=== PATIENT | male | born 1985 | race African-American/Black ===

== ENCOUNTER 2022-09-09 01:53 | Emergency (ER) | payer OTHER, SELFPAY ==
[2022-09-09 01:54] VITALS: BP 152/95; PULSE 72; RESP 18; TEMP 36.1; O2SAT 98; BMI 34.4
[2022-09-09 04:14] VITALS: BP 127/78; PULSE 78; RESP 14; TEMP 36.6; O2SAT 95
--- NOTE | 2022-09-09 07:15 | PC.NURSE ---
pt is alert and oriented, skin appropriate for ethnicity, pt reports since has a rash/hives all over his body itchy, hand swelling, respirations even and unlabored, ls clear, speaking in clear sentences. vs stable
--- NOTE | 2022-09-09 07:20 | ED_ITS ---
HPI - Allergic Reaction General Chief complaint: Allergic Reaction Stated complaint: allergic reaction Time Seen by Provider: 09/09/22 06:28 Source: patient Mode of arrival: ambulatory Limitations: no limitations History of Present Illness HPI narrative: 36-year-old male with no medical history presents to the ER for evaluation of itchy, red hives all over his entire body that started 4 days ago after starting construction in his home. He was seen at urgent care 3 days ago he was started on prednisone 60 mg, Pepcid and p.r.n. hydroxyzine for itching. He states he initially had improvement after taking the steroids however when he went back home into the environment where his house is under construction he developed recurrence and worsening symptoms. He states when he touched his eyes his eyes got swollen. He feels like his lower lip is swollen. He denies any shortness of breath or wheezing. Denies any history of similar episodes in the past. He states he has a red, itchy, raised rash all over his body, worse on the abdomen and extremities. MD complaint: allergic reaction and hives Onset (ago): day(s) (4) Exposure: other Related Data Previous Rx's Medication Instructions Recorded diphenhydramine HCl 25 mg capsule 50 mg PO TID allergic reaction #30 09/09/22 (Allergy Medication) caps prednisone 10 mg tablets in a dose See Taper PO DAILY #48 ea 09/09/22 pack Allergies Allergy/AdvReac Type Severity Reaction Status Date / Time No Known Allergies Allergy Unverified 12/10/19 17:37 [No Known Allergies*] Review of Systems Review of Systems: Yes all other systems are reviewed and are negative [facility] Social History Social History Alcohol intake: never Smoked in Last 30 Days: No Use of substances other than those prescribed or required for medical reasons: No Advance Directives: No Advance Directives Information Provided: No Physical Exam ED Vital Signs: Vital Signs - 24 hr 09/09/22 01:54 09/09/22 04:14 09/09/22 07:29 Temperature 97 F 97.9 F Pulse Rate 72 78 85 Respiratory Rate 18 14 20 Blood Pressure 152/95 H 127/78 133/87 Pulse Oximetry 98 95 99 Oxygen Delivery Method Room Air Room Air Room Air BMI result Body Mass Index 34.4 Appearance: Alert. Oriented X3. No acute distress. Head: normocephalic, atraumatic. Eyes: Mild periorbital edema, no erythema. Pupils equal, round and reactive to light. ENT: mild swelling of the lower lip. airway patent. Pharynx normal. No tonsillar swelling or exudate. voice is normal Neck: Normal inspection. Neck supple. No anterior swelling. CVS: Normal heart rate and rhythm. Pulses normal. Respiratory: No respiratory distress. Breath sounds normal. Abdomen: Soft and nontender. +BS x4 Skin: Skin warm and dry. There is a diffuse, erythematous, raised, pruritic rash on the entire torso and but all 4 extremities. No facial involvement. Extremities: No lower extremity edema. No joint swelling. Neuro/psych: Oriented X 3. No motor deficit. No sensory deficit. CN II-XII intact. Normal speech and cognition. Medications Administered Discontinued Medications Generic Name Dose Route Start Last Admin Trade Name Freq PRN Reason Stop Dose Admin Diphenhydramine HCl 50 mg 09/09/22 06:48 09/09/22 07:27 Diphenhydramine Hcl 50 Mg/Ml Vial IVPUSH 09/09/22 06:49 50 mg ONCE ONE Administration Famotidine 20 mg 09/09/22 06:48 09/09/22 07:27 Famotidine/Pf 20 Mg/2 Ml Vial IVPUSH 09/09/22 06:49 20 mg ONCE ONE Administration Methylprednisolone Sodium Succinate 125 mg 09/09/22 06:48 09/09/22 07:27 Methylprednisolone Sod Succ 125 Mg/2 Ml Vial IVPUSH 09/09/22 06:49 125 mg ONCE ONE Administration Medical Decision Making Medical Decision Making [facility] Narrative: 28-year-old otherwise healthy male presents to the ER for evaluation full body hives that started 4 days ago. He had initial improvement with steroids however rash worsened once he was exposed back to the areas in his home under construction. Concerned this is the factor causing him to have reaction. He reported some lower lip swelling and eye swelling. His eyes are puffy. He has diffuse urticaria on his trunk and extremities. An IV was established he was given IV Solu-Medrol, IV Benadryl and Pepcid. After about 45 minutes patient had significant improvement in his rash. Patient is feeling better. Will plan to continue steroids. Will taper. Will change from Zyrtec to Benadryl. Will have him follow-up with his primary care doctor for possible information coordinator referral. He was instructed to do his best to refrain from exposing himself to potential causative factors in his home. He states he will wear tyvek suit and a respirator when working in the area. Comfortable discharge home. Patient agrees with plan. All questions were answered. Differential Diagnosis Differential Diagnoses: The differential diagnosis associated with the presentation includes Urticaria, generalized allergic reaction, contact dermatitis, angioedema External Record Review External record reviewed: Outpatient record Prescription Management I considered prescription management with: Other (Steroids and Benadryl) Social Determinants Patient?s care significantly limited by Social Determinants of Health including: Other Social Determinant of Health Precipitating factor causing his reaction is located in his home. He is going to stay in his mother's house until construction is complete Critical Care Time Critical Care Time Critical Care Time: No Discharge Plan Discharge Clinical Impression: Allergic reaction Patient Disposition: Home, Self-Care Instructions: General Allergic Reaction (ED) Additional Instructions: DD prescribe prednisone taper once you are complete with your higher dose prednisone from urgent care. Complete the entire course. Recommend stopping the Zyrtec. Start the prescribed Benadryl as directed. Do your best to avoid the areas in your home which may be precipitating her allergic reaction. Follow up with your doctor - you may benefit from an [employer] referral If you develop new or worsening symptoms call 911 or come back to the ER for further evaluation. Prescriptions: New diphenhydramine HCl [Allergy Medication] 25 mg capsule 50 mg PO TID Qty: 30 0RF prednisone 10 mg tablets,dose pack See Taper PO DAILY Qty: 48 0RF Taper: Prednisone 40 mg daily for 3 Days and 0 Hour 30 mg daily for 3 Days and 0 Hour 20 mg daily for 3 Days and 0 Hour 10 mg daily for 3 Days and 0 Hour Rx Instructions: discard remainder
[2022-09-09] MEDS: Famotidine/PF 20 MG/2 ML VIAL IVPUSH (07:27)
[2022-09-09] MEDS: methylPREDNISolone Sod Succ 125 MG/2 ML VIAL IVPUSH (07:27)
[2022-09-09] MEDS: diphenhydrAMINE HCL 50 MG/ML VIAL IVPUSH (07:27)
[2022-09-09 07:29] VITALS: BP 133/87; PULSE 85; RESP 20; O2SAT 99
== END 2022-09-09 08:36 | disposition home or self-care (01) ==
PROVIDERS: Emergency Provider Student in an Organized Health Care Education/Training Program
DX: L50.9 Urticaria, unspecified (principal); T78.40XA Allergy, unspecified, initial encounter; X58.XXXA Exposure to other specified factors, initial encounter
CPT/HCPCS: 96374; 96375; 99284; J1200; J2930

== ENCOUNTER 2022-12-02 15:10 | Emergency (ER) | payer OTHER, SELFPAY ==
--- NOTE | ~2022-12-02 | CT_ITS ---
EXAMINATION: CT HEAD WITHOUT CONTRAST CLINICAL INFORMATION: Facial asymmetry. COMPARISON: MRI brain dated 10/16/2011. TECHNIQUE: Contiguous axial imaging was performed from the skull base to vertex without intravenous administration of contrast. This CT examination was performed using dose optimization techniques as appropriate, variously including the following: *Automated exposure control *Adjustment of mA and/or kV according to patient size (this includes techniques or standardized protocols for targeted exams where dose is matched to indication/reason for exam; i.e. extremities or head) *Use of iterative reconstruction technique DLP: 748 mGy-cm FINDINGS: There is no acute intracranial hemorrhage or evidence of territorial infarction. No abnormal mass effect or midline shift is seen. [place] to white matter differentiation is well preserved. There is no abnormal attenuation within the brain parenchyma. The ventricles are normal in size. No extra-axial fluid collections are identified. The calvarium and scalp soft tissues are normal. The middle ear cavity and mastoid air cells are clear. There is mild left frontal sinusitis. There is moderate bilateral ethmoid and maxillary sinusitis. CT/CT head/brain wo IV con IMPRESSION: 1. No acute intracranial pathology. 2. There is paranasal sinusitis.
[2022-12-02 15:16] VITALS: BP 161/110; PULSE 90; RESP 18; TEMP 36.9; O2SAT 98; BMI 36.3
--- NOTE | 2022-12-02 15:17 | ED_ITS ---
HPI - General Adult General Chief complaint: Stroke Stated complaint: ?R side facial paralysis Time Seen by Provider: 12/02/22 18:08 Related Data Previous Rx's Medication Instructions Recorded diphenhydramine HCl 25 mg capsule 50 mg (2 x 25 mg) PO TID allergic 09/09/22 (Allergy Medication) reaction #30 caps prednisone 10 mg tablets in a dose See Taper PO DAILY #48 ea 09/09/22 pack prednisone 10 mg tablet 10 mg PO DIRECTED #38 tabs 12/02/22 Allergies Allergy/AdvReac Type Severity Reaction Status Date / Time No Known Allergies Allergy Verified 12/02/22 15:23 [No Known Allergies*] [facility] Social History Social History Alcohol intake: never Advance Directives: No Advance Directives Information Provided: No Physical Exam ED Vital Signs: Vital Signs - 24 hr 12/02/22 15:16 Temperature 98.5 F Pulse Rate 90 Respiratory Rate 18 Blood Pressure 161/110 H Pulse Oximetry 98 Oxygen Delivery Method Room Air BMI result Body Mass Index 36.3 Course Course Course Narrative: This is an RME: Additional HPI, ROS, PE not included below will be deferred to primary provider. Patient is a 37-year-old male who presents to the emergency department reporting at he noted partial paralysis to the right side of his face at 0900. 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 He states that he went to [id number] and he noticed that the right side of his mouth was weak. He had Almaraz's palsy previously which presented this way and then progressed to full right- sided paralysis. He does endorse an associated headache described as pressure and pain behind the right eye. He is noted to be hypertensive denies any history of hypertension. Complaining of ear pain, noted cerumen impaction without any evidence of vesicular lesions. at this time LKWT >6 hours ago, would not be tPA candidate. Physical examination: Mouth asymmetry only noted with pursed lips; NIH Stroke score 1, otherwise no deficits Plan: Labs, head CT Medical Decision Making Lab Data 12/02/22 16:01 12/02/22 16:01 Labs: Lab Results 12/02/22 Range/Units 16:01 WBC 8.6 (4.8-10.8) X10*3/uL RBC 5.05 (4.60-5.80) X10*6/uL Hgb 14.9 (14.0-18.0) g/dl Hct 42.8 (42.0-52.0) % MCV 84.8 (80.0-98.0) fL MCH 29.5 (27.0-33.0) pg MCHC 34.8 (31.0-36.0) g/dl RDW 13.1 (11.0-16.0) % Plt Count 312 (160-400) X10*3/uL MPV 8.8 L (9.4-12.4) fL Immature Gran % (Auto) 0.2 (0.0-0.4) % Neut % (Auto) 60.1 (45-73) % Lymph % (Auto) 28.7 (20-40) % [place] % (Auto) 8.1 (2-11) % Eos % (Auto) 2.4 (0-4) % Baso % (Auto) 0.5 (0-2) % Lymph # (Auto) 2.5 (1.2-4.9) X10*3/uL [place] # (Auto) 0.7 (0.1-1.2) X10*3/uL Eos # (Auto) 0.2 (0.0-0.4) X10*3/uL Baso # (Auto) 0.0 (0.0-0.2) X10*3/uL Abs Immat Gran (auto) 0.02 (0.00-0.03) X10*3/uL Absolute Neuts (auto) 5.2 (2.0-8.3) x10*3/uL Absolute Nucleated RBC 0.000 (0.0-0.012) X10*3/uL Nucleated RBC % (auto) 0.0 (0.0-0.2) /100WBC Sodium 142 (135-145) mmol/L Potassium 3.9 (3.3-5.1) mmol/L Chloride 107 (96-108) mmol/L Carbon Dioxide 25 (22-29) mmol/L Anion Gap 14 (12-20) BUN 16 (9-16) mg/dL Creatinine 0.99 (0.5-1.4) mg/dL Estim Creat Clear Calc 127.1 Estimated GFR > 60 Random Glucose 100 (60-115) mg/dL Calcium 9.5 (8.4-10.2) mg/dL Total Bilirubin 0.3 (0.0-1.0) mg/dL AST 19 (5-37) U/L ALT 26 (0-40) U/L Alkaline Phosphatase 78 (39-117) U/L Total Protein 7.7 (6.5-8.0) g/dL Albumin 4.6 (3.5-5.0) g/dL Lyme Screen IgG & IgM POSITIVE Lyme Progressive Test 1.52 H index Lyme IgG 18 kDa Band NON-REACTIVE Lyme IgG 23 kDa Band NON-REACTIVE Lyme IgG 28 kDa Band NON-REACTIVE Lyme IgG 30 kDa Band NON-REACTIVE Lyme IgG 45 kDa Band NON-REACTIVE Lyme IgG 58 kDa Band NON-REACTIVE Lyme IgG 66 kDa Band NON-REACTIVE Lyme IgG 93 kDa Band NON-REACTIVE Lyme IgG Ab (Immblot) NEGATIVE (NEGATIVE) Lyme IgM 23 kDa Band NON-REACTIVE Lyme IgM 39 kDa Band NON-REACTIVE Lyme IgM 41 kDa Band NON-REACTIVE Lyme IgM Interpretaton NEGATIVE (NEGATIVE) Discharge Plan Discharge Clinical Impression: Almaraz palsy Patient Disposition: Home, Self-Care Instructions: Almaraz Palsy (ED) Prescriptions: New prednisone 10 mg tablet 10 mg PO DIRECTED Qty: 38 0RF Rx Instructions: 6 tabs per days for 4 days 4 tabs per day for 2 days 2 tab per day for 2 days 1 tab per day for 2 days No Action diphenhydramine HCl [Allergy Medication] 25 mg capsule 50 mg PO TID Qty: 30 0RF prednisone 10 mg tablets,dose pack See Taper PO DAILY Qty: 48 0RF Taper: Prednisone 40 mg daily for 3 Days and 0 Hour 30 mg daily for 3 Days and 0 Hour 20 mg daily for 3 Days and 0 Hour 10 mg daily for 3 Days and 0 Hour Rx Instructions: discard remainder Referrals: Yaritza Grady MD [Physician] - 12/04/22 Physician,Joe Valle [Primary Care Provider] - 12/04/22 Interventions: ED Discharge Assessment Last Done: 12/02/22 19:57 Discharge Date/Time: 12/02/22 19:58
[2022-12-02 16:06] LABS: MANUAL DIFF FLAG NO
[2022-12-02 16:08] LABS: Basophils Percent Auto 0.5 % (0-2); Eosinophils Absolute Auto 0.2 X10*3/uL (0.0-0.4); Eosinophils Percent Auto 2.4 % (0-4); Hematocrit 42.8 % (42.0-52.0); Hemoglobin 14.9 g/dl (14.0-18.0); Imm Gran Abs Auto 0.02 X10*3/uL (0.00-0.03); Imm Gran Pct Auto 0.2 % (0.0-0.4); Lymphocytes Absolute Auto 2.5 X10*3/uL (1.2-4.9); Lymphocytes Percent Auto 28.7 % (20-40); Mean Corpuscular HGB Conc 34.8 g/dl (31.0-36.0); Mean Corpuscular Hemoglobin 29.5 pg (27.0-33.0); Mean Corpuscular Volume 84.8 fL (80.0-98.0); Mean Platelet Volume 8.8 fL (9.4-12.4); Monocytes Absolute Auto 0.7 X10*3/uL (0.1-1.2); Monocytes Percent Auto 8.1 % (2-11); Neutrophils Absolute Auto 5.2 x10*3/uL (2.0-8.3); Neutrophils Percent Auto 60.1 % (45-73); Platelet Count 312 X10*3/uL (160-400); Red Blood Count 5.05 X10*6/uL (4.60-5.80); Red Cell Distribution Width 13.1 % (11.0-16.0); White Blood Count 8.6 X10*3/uL (4.8-10.8)
[2022-12-02 16:30] LABS: Alanine Aminotransferase 26 U/L (0-40); Albumin Level 4.6 g/dL (3.5-5.0); Alkaline Phosphatase 78 U/L (39-117); Anion Gap 14 (12-20); Aspartate Amino Transferase 19 U/L (5-37); Bilirubin Total 0.3 mg/dL (0.0-1.0); Blood Urea Nitrogen 16 mg/dL (9-16); Calcium 9.5 mg/dL (8.4-10.2); Carbon Dioxide 25 mmol/L (22-29); Chloride 107 mmol/L (96-108); Creatinine Clr Calc Pharmacy 127.1; Estimated Glomerular Filt Rate > 60; Glucose Random 100 mg/dL (60-115); Potassium 3.9 mmol/L (3.3-5.1); Sodium 142 mmol/L (135-145); Total Protein 7.7 g/dL (6.5-8.0)
--- NOTE | 2022-12-02 18:43 | ED.NEUROSD ---
HPI - Neuro Symptoms/Deficit General Chief Complaint: Stroke Stated Complaint: ?R side facial paralysis Time Seen by Provider: 12/02/22 18:08 History of Present Illness HPI Narrative: Patient is a 37-year-old male with a history of Almaraz's palsy. Woke up give this morning noticed that his lip is weak. Patient's nose seems to be weaker on the right side. Also noted that he cannot close his eye as well on the right. No watery eyes. Patient has a history of Almaraz's palsy. He is from home. There is no travel history. [place] the city. Does not go outside. Has no history of diabetes, hypertension, high cholesterol, smoking, PA. No history of stroke. No weakness in the arms or legs. No difficulty with swallowing. No changes in speech. Related Data Previous Rx's Medication Instructions Recorded diphenhydramine HCl 25 mg capsule 50 mg (2 x 25 mg) PO TID allergic 09/09/22 (Allergy Medication) reaction #30 caps prednisone 10 mg tablets in a dose See Taper PO DAILY #48 ea 09/09/22 pack prednisone 10 mg tablet 10 mg PO DIRECTED #38 tabs 12/02/22 Allergies Allergy/AdvReac Type Severity Reaction Status Date / Time No Known Allergies Allergy Verified 12/02/22 15:23 [No Known Allergies*] Review of Systems Review of Systems: Positive facial weakness on right side PMFSH Past Medical History Attestation statement: The following information was validated with the patient. Social History Social History Alcohol intake: never Advance Directives: No Advance Directives Information Provided: No Physical Exam Vital Signs: Vital Signs: Last Vital Signs Temp 98.5 F 12/02/22 15:16 Pulse 90 12/02/22 15:16 Resp 18 12/02/22 15:16 BP 161/110 H 12/02/22 15:16 Pulse Ox 98 12/02/22 15:16 O2 Del Method Room Air 12/02/22 15:16 BMI result Body Mass Index 36.3 Appearance: Alert. Oriented X3. No acute distress. Eyes: Pupils equal, round and reactive to light. ENT: Pharynx normal. Neck: Normal inspection. Neck supple. No lymph nodes noted. No crepitus CVS: Normal heart rate and rhythm. Pulses normal. Normal S1 and S2 Respiratory: No respiratory distress. Breath sounds normal. No Wheezing. No rales Abdomen: Soft and nontender. No rigidity. No distention. good BS x4 Skin: Skin warm and dry. Normal skin color. Normal skin turgor. Extremities: No lower extremity edema. Neurovascular intact to all extremities. No Lacerations. No Rash Neuro: Oriented X 3. No motor deficit. No sensory deficit. Moving all extermities. No slurred speech. There is weakness in trying to keep the eyes closed on the right. There is a slight facial droop noted on the right side. There is slight increase in weakness noted in wrinkling his forehead. Medical Decision Making Medical Decision Making [facility] Narrative: Patient's symptoms consistent with Almaraz's palsy. There is right-sided facial weakness noted over the entire half of the face. There is no change in speech. There is no arms or leg weakness. Symptoms are consistent with Almaraz's palsy. Sugars normal no evidence for hypoglycemia. A Lyme was added. Patient to be discharged home on steroids. Currently in stable condition. CT scan of the head by my interpretation was grossly negative for any acute evidence of bleeding. I reviewed radiology's reading. Differential Diagnosis Differential Diagnoses: The differential diagnosis associated with the presentation includes Intracranial bleed, stroke, hypoglycemia, Lyme Admission/Observation Consideration of admission/observation: Escalation of care including admission/observation considered No need as patient has weakness over half the face consistent with bowels. Lab Data [facility] Lab Attestation statement: I reviewed the patient's lab results. 12/02/22 16:01 12/02/22 16:01 Labs: Lab Results 12/02/22 Range/Units 16:01 WBC 8.6 (4.8-10.8) X10*3/uL RBC 5.05 (4.60-5.80) X10*6/uL Hgb 14.9 (14.0-18.0) g/dl Hct 42.8 (42.0-52.0) % MCV 84.8 (80.0-98.0) fL MCH 29.5 (27.0-33.0) pg MCHC 34.8 (31.0-36.0) g/dl RDW 13.1 (11.0-16.0) % Plt Count 312 (160-400) X10*3/uL MPV 8.8 L (9.4-12.4) fL Immature Gran % (Auto) 0.2 (0.0-0.4) % Neut % (Auto) 60.1 (45-73) % Lymph % (Auto) 28.7 (20-40) % [place] % (Auto) 8.1 (2-11) % Eos % (Auto) 2.4 (0-4) % Baso % (Auto) 0.5 (0-2) % Lymph # (Auto) 2.5 (1.2-4.9) X10*3/uL [place] # (Auto) 0.7 (0.1-1.2) X10*3/uL Eos # (Auto) 0.2 (0.0-0.4) X10*3/uL Baso # (Auto) 0.0 (0.0-0.2) X10*3/uL Abs Immat Gran (auto) 0.02 (0.00-0.03) X10*3/uL Absolute Neuts (auto) 5.2 (2.0-8.3) x10*3/uL Absolute Nucleated RBC 0.000 (0.0-0.012) X10*3/uL Nucleated RBC % (auto) 0.0 (0.0-0.2) /100WBC Sodium 142 (135-145) mmol/L Potassium 3.9 (3.3-5.1) mmol/L Chloride 107 (96-108) mmol/L Carbon Dioxide 25 (22-29) mmol/L Anion Gap 14 (12-20) BUN 16 (9-16) mg/dL Creatinine 0.99 (0.5-1.4) mg/dL Estim Creat Clear Calc 127.1 Estimated GFR > 60 Random Glucose 100 (60-115) mg/dL Calcium 9.5 (8.4-10.2) mg/dL Total Bilirubin 0.3 (0.0-1.0) mg/dL AST 19 (5-37) U/L ALT 26 (0-40) U/L Alkaline Phosphatase 78 (39-117) U/L Total Protein 7.7 (6.5-8.0) g/dL Albumin 4.6 (3.5-5.0) g/dL Independent Interpretation I performed an independent interpretation of an: CT Scan Interpretation: Negative for bleeding no fracture Radiology Impression Discussion of test interpretation with radiology: I have reviewed the radiologist's reading. Independent Historian Clinical information obtained from an independent historian. History obtained from or confirmed by: Spouse Prescription Management I considered prescription management with: Other Steroid Discharge Plan Discharge Clinical Impression: Almaraz palsy Patient Disposition: Home, Self-Care Instructions: Almaraz Palsy (ED) Prescriptions: New prednisone 10 mg tablet 10 mg PO DIRECTED Qty: 38 0RF Rx Instructions: 6 tabs per days for 4 days 4 tabs per day for 2 days 2 tab per day for 2 days 1 tab per day for 2 days No Action diphenhydramine HCl [Allergy Medication] 25 mg capsule 50 mg PO TID Qty: 30 0RF prednisone 10 mg tablets,dose pack See Taper PO DAILY Qty: 48 0RF Taper: Prednisone 40 mg daily for 3 Days and 0 Hour 30 mg daily for 3 Days and 0 Hour 20 mg daily for 3 Days and 0 Hour 10 mg daily for 3 Days and 0 Hour Rx Instructions: discard remainder Referrals: Physician,Joe J [Primary Care Provider] - 12/04/22 Yaritza Grady MD [Physician] - 12/04/22
[2022-12-03 21:08] LABS: Lyme Blot 1.52 index
[2022-12-06 11:23] LABS: Lyme Abs Screen POSITIVE
[2022-12-07 22:23] LABS: 18 KD (IgG) Band NON-REACTIVE; 23 KD (IgG) Band NON-REACTIVE; 23 KD (IgM) Band NON-REACTIVE; 28 KD (IgG) Band NON-REACTIVE; 30 KD (IgG) Band NON-REACTIVE; 39 KD (IgM) Band NON-REACTIVE; 39KD (IgG) Band NON-REACTIVE; 41 KD (IgM) Band NON-REACTIVE; 41KD (IgG) Band NON-REACTIVE; 45 KD (IgG) Band NON-REACTIVE; 58 KD (IgG) Band NON-REACTIVE; 66 KD (IgG) Band NON-REACTIVE; 93 KD (IgG) Band NON-REACTIVE; Lyme IgG Blot Interp NEGATIVE (NEGATIVE); Lyme IgM Blot Interp NEGATIVE (NEGATIVE)
== END 2022-12-02 19:58 | disposition home or self-care (01) ==
PROVIDERS: Nurse Practitioner Family; Emergency Provider Emergency Medicine Emergency Medical Services
DX: G51.0 Bell's palsy (principal); Z79.899 Other long term (current) drug therapy
CPT/HCPCS: 36415; 70450; 80053; 85025; 86617; 86618; 99282; 99284